=== PATIENT | female | born 1980 | race Caucasian/White ===

== ENCOUNTER 2017-08-30 15:46 | Emergency (ER) | payer BC ==
[~2017-08-30] VITALS: Ht 170.2 cm; Wt 74.8 kg
[2017-08-30 16:04] VITALS: BP 131/83
== END 2017-08-30 16:32 | disposition home or self-care (01) ==
LOC: ER 15:54 → EDBD 15:54 → ER 16:32
DX: G89.29 Other chronic pain (principal); M54.2 Cervicalgia

== ENCOUNTER 2017-11-04 13:36 | Emergency (ER) | payer BC ==
[~2017-11-04] VITALS: Ht 170.2 cm; Wt 79.4 kg
[2017-11-04 14:13] VITALS: BP 122/78
== END 2017-11-04 15:23 | disposition home or self-care (01) ==
LOC: ER 13:36
DX: M50.30 Other cervical disc degeneration, unspecified cervical region (principal); G89.29 Other chronic pain; M54.2 Cervicalgia

== ENCOUNTER 2017-12-25 19:13 | Emergency (ER) | payer BC, MEDICAID ==
[~2017-12-25] VITALS: Ht 170.2 cm; Wt 79.4 kg
[2017-12-25 20:21] VITALS: BP 140/87
[2017-12-26] MEDS ORDERED: HYDROcodone-ACET 10/325MG TAB PO ONE (01:00)
== END 2017-12-26 01:48 | disposition home or self-care (01) ==
LOC: ER 19:13
DX: G89.29 Other chronic pain (principal); M54.2 Cervicalgia; F17.210 Nicotine dependence, cigarettes, uncomplicated; Z76.0 Encounter for issue of repeat prescription

== ENCOUNTER 2018-01-22 15:25 | Emergency (ER) | payer MEDICAID ==
[~2018-01-22] VITALS: Ht 170.2 cm; Wt 78.5 kg
[2018-01-22 15:37] VITALS: BP 117/72
[2018-01-22] MEDS ORDERED: KETOROLAC TROMETH 60MG/2ML VIAL IM ONE (17:15)
[2018-01-22] MEDS ORDERED: METHOCARBAMOL 500 MG TAB PO ONE (17:15)
== END 2018-01-22 18:10 | disposition home or self-care (01) ==
LOC: ER 15:25
DX: S39.012A Strain of muscle, fascia and tendon of lower back, initial encounter (principal); M54.42 Lumbago with sciatica, left side; F17.210 Nicotine dependence, cigarettes, uncomplicated; G89.29 Other chronic pain; Z98.51 Tubal ligation status; X58.XXXA Exposure to other specified factors, initial encounter; Y93.89 Activity, other specified; Y92.89 Other specified places as the place of occurrence of the external cause; Y99.8 Other external cause status
CPT/HCPCS: 96372; 99283; J1885